=== PATIENT | female | born 1970 | race Caucasian/White ===

== ENCOUNTER → 2019-08-09 | Outpatient (CLI) | payer OTHER ==
--- NOTE | 2019-08-09 12:19 | Diagnostic Imaging Report ---
PROCEDURE: MRI lumbar spine. INDICATION: Distended abdomen and difficulty sitting secondary to back pain. History of multiple sclerosis. TECHNIQUE: Multiplanar and multisequence noncontrast magnetic resonance imagine was performed of the lumbar spine. CORRELATION STUDY: None. FINDINGS: There is normal alignment and curvature of the lumbar spine. The lumbar vertebral body heights are maintained and without geographic lesion. Conus is slightly low lying, terminating at the L2-L3 level. No definitive coarse signal abnormality of the visualized portions of the cord. L5-S1: Mild loss of disc space height. No significant canal or foraminal narrowing. L4-L5: Mild loss of height and signal intensity. Very mild broad-based disc bulge. Minimal disc and osteophyte formation with slight effacement of the perineural fat, slightly greater on the left. However, no nerve impingement. No canal stenosis. L3-L4: Unremarkable. L2-L3: Slight loss of disc space height. No significant canal or foraminal narrowing. L1-L2: Unremarkable. The visualized portions of the abdominal aorta and kidneys are negative. No pathologically enlarged central retroperitoneal lymph nodes. IMPRESSION: 1. Mild degenerative disc disease, most pronounced at L4-L5 and to lesser degree at L5-S1 and L2-L3 levels. No significant canal or foraminal stenosis. 2. The conus is slightly low lying and may be somewhat tethered but otherwise unremarkable. Dictated by: Dictated on workstation # [id number]
== END ==
LOC: RAD 07:59
PROVIDERS: ATTEND Internal Medicine
DX: M51.37 Other intervertebral disc degeneration, lumbosacral region (principal); G35 Multiple sclerosis
CPT/HCPCS: 72148

== ENCOUNTER 2019-09-25 10:05 | Emergency (ER) | payer MEDICARE, OTHER ==
[~2019-09-25] VITALS: Ht 165.1 cm; Wt 85.3 kg
[2019-09-25 11:04] LABS: HEMATOCRIT 40 % (35-52); HEMOGLOBIN 13.8 G/DL (11.5-16.0); MEAN CORPUSCULAR HEMOGLOBIN 29 PG (25-34); MEAN CORPUSCULAR HGB CONC 34 G/DL (32-36); MEAN CORPUSCULAR VOLUME 84 FL (80-99); WHITE BLOOD COUNT 7.2 10^3/uL (4.3-11.0)
[2019-09-25 11:05] LABS: BASOPHILS % (AUTO) 0 % (0-10); EOSINOPHILS # (AUTO) 0.1 10^3/uL (0.0-0.3); EOSINOPHILS % (AUTO) 2 % (0-10); LYMPHOCYTES % (AUTO) 15 % (12-44); MEAN PLATELET VOLUME 9.9 FL (7.4-10.4); MONOCYTES # (AUTO) 0.9 X 10^3 (0.0-1.0); MONOCYTES % (AUTO) 12 % (0-12); NEUTROPHILS # (AUTO) 5.1 X 10^3 (1.8-7.8); NEUTROPHILS % (AUTO) 71 % (42-75); PLATELET COUNT 170 10^3/uL (130-400); RED CELL DISTRIBUTION WIDTH 11.9 % (10.0-14.5)
[2019-09-25 11:07] LABS: ALANINE AMINOTRANSFERASE 24 U/L (0-55); ALBUMIN 4.2 GM/DL (3.2-4.5); ALKALINE PHOSPHATASE 70 U/L (40-136); BILIRUBIN,TOTAL 0.4 MG/DL (0.1-1.0); BUN/CREATININE RATIO 15; CALCIUM 9.5 MG/DL (8.5-10.1); CARBON DIOXIDE 27 MMOL/L (21-32); CHLORIDE 100 MMOL/L (98-107); CREATININE SERUM 0.88 MG/DL (0.60-1.30); GFR ESTIMATED > 60; GLUCOSE 110 MG/DL (70-105); POTASSIUM 4.1 MMOL/L (3.6-5.0); SODIUM 139 MMOL/L (135-145); TOTAL PROTEIN 7.2 GM/DL (6.4-8.2)
--- NOTE | 2019-09-25 11:20 | ED Abdominal Pain ---
General Chief Complaint: Abdominal/GI Problems Stated Complaint: ABD PAIN Nursing Triage Note: Patient c/o abdominal distention and pain. States she has had issues with abdominal pain and distention for the last 2 years but the last 3 days have been especially painful. She also reports that she has had some bowel movements that resemble coffee grounds. Sepsis Screen: No Definite Risk Source of Information: Patient Exam Limitations: No Limitations History of Present Illness Date Seen by Provider: Sep 25, 2019 Time Seen by Provider: 11:03 Initial Comments The patient is a 49-year-old white female who reports that 2 years ago while living in [place] she had problems with a CLEAN [employer] HELPER [employer]QU[employer] prosthesis which had been placed in her salpinges. It was then determined that the solution was to remove it. And she ultimately had removal of the device tubal ligation and hysterectomy. Apparently a small piece of the device was left behind. She then had large bowel symptoms and had a segmental resection of her colon. She states she was told that this was due to diverticulitis. She is continued to have troubles and ultimately had to move back here to be with her mother because of her issues. She describes multiple bowel movements a day. She finds it hard to sit because of pain. She is able to continue to try to exercise and states that she walks 9-15 miles a week. She and her mother reports that she is sought help at multiple physicians and institutions without any answers. She believes it is been 2 years since she has had a CT scan. She more recently had a colonoscopy and was told that the anastomosis was quite nice. She reports being frustrated by all of this Severity/Quality: Moderate, Severe Location: Generalized Abdomen Radiation: Back Allergies and Home Medications Allergies Coded Allergies: titanium (Unverified Allergy, Mild, 09/25/19) Sulfa (Sulfonamide Antibiotics) (Verified Allergy, Unknown, 09/25/19) adhesive tape (Verified Allergy, Unknown, 09/25/19) albumin human (Verified Allergy, Unknown, 09/25/19) carbamazepine (Verified Allergy, Unknown, 09/25/19) desipramine (Verified Allergy, Unknown, 09/25/19) dicyclomine (Verified Allergy, Unknown, 09/25/19) erythromycin base (Verified Allergy, Unknown, 09/25/19) gabapentin (Verified Allergy, Unknown, 09/25/19) glatiramer (copolymer 1) (Verified Allergy, Unknown, 09/25/19) hydromorphone (Verified Allergy, Unknown, 09/25/19) interferon beta-1a (Verified Allergy, Unknown, 09/25/19) latex (Verified Allergy, Unknown, 09/25/19) metronidazole (Verified Allergy, Unknown, 09/25/19) omeprazole (Verified Allergy, Unknown, 09/25/19) prochlorperazine (Verified Allergy, Unknown, 09/25/19) silver nitrate (Verified Allergy, Unknown, 09/25/19) Patient Home Medication List Home Medication List Reviewed: Yes Review of Systems Review of Systems Constitutional: see HPI EENTM: No Symptoms Reported Respiratory: No Symptoms Reported Cardiovascular: No Symptoms Reported Gastrointestinal: See HPI Genitourinary: No Symptoms Reported Musculoskeletal: no symptoms reported Skin: no symptoms reported Psychiatric/Neurological: No Symptoms Reported Endocrine: No Symptoms Reported Hematologic/Lymphatic: No Symptoms Reported Past Ceujtpv-Zuzklu-Mikneq Hx Patient Social History Alcohol Use: Denies Use Recreational Drug Use: No Smoking Status: Never a Smoker 2nd Hand Smoke Exposure: No Recent Foreign Travel: No Contact w/Someone Who Travel: No Recent Infectious Disease Expo: No Recent Hopitalizations: No Physical Abuse: No Sexual Abuse: No Mistreated: No Fear: No Seasonal Allergies Seasonal Allergies: No Past Medical History Surgeries: Yes Bowel Surgery, Hysterectomy, Orthopedic, Tubal Ligation Respiratory: Yes Asthma Cardiac: No Neurological: Yes (Cortex Brain Lesion, Brain Stem Lesion, +MARI Virus) Multiple Sclerosis [employer] History: Hysterectomy, Tubal Ligation Genitourinary: No Gastrointestinal: Yes Musculoskeletal: Yes Fibromyalgia Endocrine: No HEENT: No Cancer: No Psychosocial: No Integumentary: No Blood Disorders: No Physical Exam Vital Signs Vital Signs - First Documented 09/25/19 10:18 Temp 36.8 Pulse 99 Resp 16 B/P (MAP) 138/85 (102) Pulse Ox 96 O2 Delivery Room Air Capillary Refill : Less Than 3 Seconds Height/Weight/BMI Height: '" Weight: lbs. oz. kg; 31.00 BMI Method: General Appearance: mild distress, moderate distress HEENT: normal ENT inspection Neck: full range of motion Respiratory: chest non-tender, lungs clear, normal breath sounds, no respiratory distress, no accessory muscle use Cardiovascular: normal peripheral pulses, regular rate, rhythm, no edema, no gallop, no JVD, no murmur Gastrointestinal: other (the abdomen appears to be distended. There is no tympany to percussion. Bowel sounds are active.) Neurologic/Psychiatric: crook operator II-XII nml as tested, no motor/sensory deficits, alert, normal mood/affect, oriented x 3 Skin: normal color, warm/dry Progress/Results/Core Measures Results/Orders Lab Results Laboratory Tests Test 09/25/19 10:30 09/25/19 12:27 Range/Units White Blood Count 7.2 4.3-11.0 10^3/uL Red Blood Count 4.82 4.35-5.85 10^6/uL Hemoglobin 13.8 11.5-16.0 G/DL Hematocrit 40 35-52 % Mean Corpuscular Volume 84 80-99 FL Mean Corpuscular Hemoglobin 29 25-34 PG Mean Corpuscular Hemoglobin Concent 34 32-36 G/DL Red Cell Distribution Width 11.9 10.0-14.5 % Platelet Count 170 130-400 10^3/uL Mean Platelet Volume 9.9 7.4-10.4 FL Neutrophils (%) (Auto) 71 42-75 % Lymphocytes (%) (Auto) 15 12-44 % Monocytes (%) (Auto) 12 0-12 % Eosinophils (%) (Auto) 2 0-10 % Basophils (%) (Auto) 0 0-10 % Neutrophils # (Auto) 5.1 1.8-7.8 X 10^3 Lymphocytes # (Auto) 1.0 1.0-4.0 X 10^3 Monocytes # (Auto) 0.9 0.0-1.0 X 10^3 Eosinophils # (Auto) 0.1 0.0-0.3 10^3/uL Basophils # (Auto) 0.0 0.0-0.1 10^3/uL Sodium Level 139 135-145 MMOL/L Potassium Level 4.1 3.6-5.0 MMOL/L Chloride Level 100 98-107 MMOL/L Carbon Dioxide Level 27 21-32 MMOL/L Anion Gap 12 5-14 MMOL/L Blood Urea Nitrogen 13 7-18 MG/DL Creatinine 0.88 0.60-1.30 MG/DL Estimat Glomerular Filtration Rate > 60 BUN/Creatinine Ratio 15 Glucose Level 110 H 70-105 MG/DL Calcium Level 9.5 8.5-10.1 MG/DL Corrected Calcium 9.3 8.5-10.1 MG/DL Total Bilirubin 0.4 0.1-1.0 MG/DL Aspartate Amino Transf (AST/SGOT) 23 5-34 U/L Alanine Aminotransferase (ALT/SGPT) 24 0-55 U/L Alkaline Phosphatase 70 40-136 U/L Total Protein 7.2 6.4-8.2 GM/DL Albumin 4.2 3.2-4.5 GM/DL Urine Color YELLOW Urine Clarity CLEAR Urine pH 6.5 5-9 Urine Specific [place] <=1.005 1.016-1.022 Urine Protein NEGATIVE NEGATIVE Urine Glucose (UA) NEGATIVE NEGATIVE Urine Ketones TRACE H NEGATIVE Urine Nitrite NEGATIVE NEGATIVE Urine Bilirubin NEGATIVE NEGATIVE Urine Urobilinogen 0.2 NORMAL MG/DL Urine Leukocyte Esterase NEGATIVE NEGATIVE Urine RBC (Auto) NEGATIVE NEGATIVE Urine RBC NONE /HPF Urine WBC NONE /HPF Urine Squamous Epithelial Cells 25-50 H /HPF Urine Crystals NONE /LPF Urine Bacteria MODERATE H /HPF Urine Casts NONE /LPF Urine Mucus NEGATIVE /LPF Urine Culture Indicated NO My Orders Orders - BLANKA ENGEL MD Cbc With Automated Diff (09/25/19 10:24) Comprehensive Metabolic Panel (09/25/19 10:24) Urinalysis (09/25/19 10:24) Fecal Occult Bedside (09/25/19 11:16) Ct Abdomen/Pelvis W (09/25/19 11:58) Iohexol Injection (Omnipaque 350 Mg/Ml 1 (09/25/19 12:15) Received Contrast (Hold Metformin- Contr (09/25/19 12:15) Ns (Ivpb) (Sodium Chloride 0.9% Ivpb Bag (09/25/19 12:15) Promethazine Injection (Phenergan Injec (09/25/19 13:15) Ketorolac Injection (Toradol Injection) (09/25/19 13:15) Medications Given in ED Current Medications Medications Dose Ordered Sig/Mohan Route Start Time Stop Time Status Last Admin Dose Admin Iohexol 100 ml ONCE ONCE IV 09/25/19 12:15 09/25/19 12:16 DC 09/25/19 12:28 100 ML Sodium Chloride 100 ml ONCE ONCE IV 09/25/19 12:15 09/25/19 12:16 DC 09/25/19 12:28 80 ML Vital Signs/I&O 09/25/19 10:18 Temp 36.8 Pulse 99 Resp 16 B/P (MAP) 138/85 (102) Pulse Ox 96 O2 Delivery Room Air Blood Pressure Mean: 102 Departure Impression Primary Impression: right sided colitis Disposition: HOME, SELF-CARE Condition: Stable/Unchanged Departure-Patient Inst. Decision time for Depature: 12:48 Referrals: AGATHA GERARD DO (PCP/Family) Primary Care Physician Patient Instructions: No Instuctions Given Add. Discharge Instructions: All discharge instructions reviewed with patient and/or family. Voiced understanding. Discussed the findings and the issues with the patient and her mother at length. I reviewed the CT scan and indeed there appears to be thickening of the colon mucosa in the area of the cecum. By her statement the laparoscopic colectomy done previously was in the sigmoid region. I believe and told them that I believe that at this point colonoscopy would be useful to view the area seen in the CT scan. BLANKA ENGEL MD Sep 25, 2019 11:20
[2019-09-25] MEDS ORDERED: IOHEXOL 350 MG/ML 100 ML (OMNIPAQUE 350) VIAL IV ONE (12:15)
[2019-09-25] MEDS ORDERED: HOLD METFORMIN - RECEIVED CONTRAST 20 ML VIAL IV SCH (12:15)
[2019-09-25] MEDS ORDERED: NS 100 ML (IVPB) BAG IV ONE (12:15)
--- NOTE | 2019-09-25 12:34 | Diagnostic Imaging Report ---
PROCEDURE: CT abdomen and pelvis with contrast. TECHNIQUE: Multiple contiguous axial images were obtained through the abdomen and pelvis after administration of intravenous contrast. Auto Exposure Controls were utilized during the CT exam to meet ALARA standards for radiation dose reduction. INDICATION: Chronic upper abdominal pain radiating down to the pelvis which has gotten worse over the past several days. FINDINGS: The liver, gallbladder and bile ducts are normal. The spleen, pancreas and adrenals are normal. The kidneys, ureters and bladder are normal. There is diverticulosis of the colon. There is mucosal edema and surrounding induration involving the cecum and ascending colon. There is some involvement of the transverse colon. No obstruction or perforation is evident. The small bowel is within normal limits. There is no free intraperitoneal air or fluid. There is no bony abnormality. IMPRESSION: There is an abnormal appearance to the right colon consistent with colitis. No obstruction or perforation is evident and no other acute abnormality is seen. Dictated by: Dictated on workstation # [id number]
[2019-09-25 12:35] LABS: BILIRUBIN,URINE NEGATIVE (NEGATIVE); CLARITY,URINE CLEAR; COLOR,URINE YELLOW; GLUCOSE, URINE (UA) NEGATIVE (NEGATIVE); KETONES,URINE TRACE (NEGATIVE); NITRITE,URINE NEGATIVE (NEGATIVE); PH,URINE 6.5 (5-9); PROTEIN,URINE NEGATIVE (NEGATIVE)
[2019-09-25 12:36] LABS: LEUKOCYTE ESTERASE ,URINE NEGATIVE (NEGATIVE)
[2019-09-25 12:41] LABS: BACTERIA,URINE MODERATE /HPF; SQUAMOUS EPITHELIAL CELL,UR 25-50 /HPF
[2019-09-25] MEDS ORDERED: KETOROLAC 30 MG/ML VIAL IVP ONE (13:15)
[2019-09-25] MEDS ORDERED: PROMETHAZINE INJ 25 MG/ML (PHENERGAN) AMP IVP ONE (13:15)
[2019-09-25 13:45] VITALS: BP 115/74
== END 2019-09-25 13:44 | disposition home or self-care (01) ==
LOC: EDUNIT# 10:05 → ER FS 10:06
DX: K52.9 Noninfective gastroenteritis and colitis, unspecified (principal); J45.909 Unspecified asthma, uncomplicated; G35 Multiple sclerosis; M79.7 Fibromyalgia; Z98.51 Tubal ligation status; Z90.710 Acquired absence of both cervix and uterus; Z88.2 Allergy status to sulfonamides; Z88.1 Allergy status to other antibiotic agents; Z88.8 Allergy status to other drugs, medicaments and biological substances; Z91.040 Latex allergy status
CPT/HCPCS: 36415; 74177; 80053; 81000; 82274; 85025; 96374; 96375

== ENCOUNTER → 2021-02-27 | Outpatient (CLI) | payer MEDICARE | LOC: RAD 09:35 | PROVIDERS: ATTEND Internal Medicine | DX: Z12.31 Encounter for screening mammogram for malignant neoplasm of breast (principal) | CPT/HCPCS: 77063; 77067 ==

== ENCOUNTER → 2021-07-05 | Outpatient (CLI) | payer MEDICARE ==
--- NOTE | 2021-07-05 14:27 | Diagnostic Imaging Report ---
INDICATION: Lower abdominal pain KUB at 2:26 PM Bowel gas pattern is normal. There are no pathologic masses or calcifications. IMPRESSION: Negative abdomen. Dictated by: Dictated on workstation # [id number]
--- NOTE | 2021-07-05 14:27 | Diagnostic Imaging Report ---
INDICATION: Chronic right shoulder pain Four views of the right shoulder show postsurgical changes from prior tendon repair of the right shoulder. There is no acute fracture or dislocation. IMPRESSION: Postsurgical changes right shoulder. No acute abnormality is seen. Dictated by: Dictated on workstation # [id number]
== END ==
LOC: RAD FS 14:08
PROVIDERS: ATTEND Internal Medicine
DX: R10.32 Left lower quadrant pain (principal); M25.511 Pain in right shoulder
CPT/HCPCS: 73030; 74018

== ENCOUNTER → 2022-03-25 | Outpatient (CLI) | payer MEDICARE ==
--- NOTE | 2022-03-25 12:18 | Diagnostic Imaging Report ---
INDICATION: Postmenopausal screening COMPARISON: Baseline FINDINGS: AP Spine L1-L4: [BMD (g/cm2): 1.222] [T-Score: 0.2] [Z-Score: -0.1] [BMD Previous: na] [BMD % Change: na] LT Hip Neck: [BMD (g/cm2): 0.844] [T-Score: -1.4] [Z-Score: -1.0] LT Hip Total: [BMD (g/cm2):0.904] [T-Score:-0.8] [Z-Score: -0.8] [BMD Previous: na] [BMD % Change: na] RT Hip Neck: [BMD (g/cm2):0.817] [T-Score:-1.6] [Z-Score:-1.2] RT Hip Total: [BMD (g/cm2):0.877] [T-score:-1.0] [Z-Score:-1.1] [BMD Previous:na] [BMD % Change:na] *Indicates significant change from prior examination based on 95% confidence level. World Health Organization criteria for BMD interpretation classify patients as Normal (T-score at or above -1.0), Osteopenic (T-score between -1.0 and -2.5) or Osteoporotic (T-score at or below -2.5). LIMITATIONS AND MODIFICATION: None. FRACTURE RISK (FRAX SCORE): The ten year probability of (%): Major Osteoporotic Fracture: [5.0] Hip Fracture: [0.4] IMPRESSION: 1. Osteopenia (Low bone mass). 2. Baseline examination. 3. See below National Osteoporosis Foundation guidelines on when to potentially initiate pharmacologic therapy. Based on the National Osteoporosis Foundation Guidelines, pharmacologic treatment should be initiated in any of the following, unless clinical conditions suggest otherwise: * Any patient with prior fragility fracture of the hip or vertebrae. A spine fracture indicates 5X risk for subsequent spine fracture and 2X risk for subsequent hip fracture. * Osteoporosis (T-score <-2.5). * Postmenopausal women and men age 50 and older with low bone mass/osteopenia (T-score between -1.0 and -2.5) by DXA and 10-year major osteoporotic fracture greater than 20% or a 10-year probability of hip fracture greater than 3%. These fracture risks are supplied above in the FRAX score, if applicable. * Clinician judgement and/or patient preferences may indicate treatment for people with 10-year fracture probabilities above or below these levels. Dictated by: Dictated on workstation # [id number]
--- NOTE | 2022-03-25 13:34 | Diagnostic Imaging Report ---
INDICATION: Routine screening. COMPARISON: 02/27/2021 and 11/03/2018. TECHNIQUE: 2D and 3D bilateral screening mammography was performed with CAD. FINDINGS: Scattered fibroglandular densities are identified bilaterally. The parenchymal pattern is stable. No mass or malignant-appearing microcalcifications are seen. The axillae are unremarkable. IMPRESSION: No mammographic features suspicious for malignancy are identified. ACR BI-RADS Category 1: Negative. Result letter will be mailed to the patient. Note: At least 10% of breast cancer is not imaged by mammography. Dictated by: Dictated on workstation # [id number]
== END ==
LOC: RAD 11:15
PROVIDERS: ATTEND Internal Medicine
DX: Z12.31 Encounter for screening mammogram for malignant neoplasm of breast (principal); Z13.820 Encounter for screening for osteoporosis; M85.88 Other specified disorders of bone density and structure, other site; Z78.0 Asymptomatic menopausal state
CPT/HCPCS: 77063; 77067; 77080

== ENCOUNTER → 2022-04-24 | Outpatient (CLI) | payer MEDICARE ==
--- NOTE | 2022-04-24 10:35 | Diagnostic Imaging Report ---
PROCEDURE: US Renal Bilateral. TECHNIQUE: Multiple real-time grayscale images were obtained over the kidneys in various projections bilaterally. INDICATION: Patient reports renal cyst. FINDINGS: Right kidney measures 10.4 x 5 x 4.6 cm. The left kidney measures 9.6 x 4 x 4.7 cm. There are no calculi. No masses or cysts are seen. Bladder appears normal. Bilateral ureteral jets are demonstrated. IMPRESSION: Normal bilateral renal and bladder ultrasound. Dictated by: Dictated on workstation # [id number]
== END ==
LOC: RAD FS 09:07
PROVIDERS: ATTEND Internal Medicine
DX: N28.1 Cyst of kidney, acquired (principal)
CPT/HCPCS: 76770